=== PATIENT | male | born 1990 ===

== ENCOUNTER 2021-02-07 08:04 | Emergency (ER) | payer MEDICAID, OTHER ==
[~2021-02-07] VITALS: Ht 180.3 cm; Wt 148.8 kg
[2021-02-07 08:08] VITALS: BP 177/106
--- NOTE | 2021-02-07 09:41 | NUR ---
PT PRESENTS TO ED TREMULOUS. TREMORS STARTING LAST NIGHT IN RT HAND. PT DENIES PAIN AT THAT TIME. TREMORS CONTINUE, ALONG WITH SAENZ UPON WAKING THIS AM. PT HOB TO LEVEL OF COMFORT. PT DENIES BLANKET AT THIS TIME. SIDE RAIL UP, CALL LIGHT IN REACH.
[2021-02-07] MEDS ORDERED: LORazepam 1MG TABLET ONE (10:54)
[2021-02-07] MEDS ORDERED: LORazepam 1MG TABLET PO ONE (11:00)
[2021-02-07 11:03] LABS: BASOPHILS % (AUTO) 1 % (0-1); EOSINOPHILS % (AUTO) 0 % (1-7); LYMPHOCYTES % (AUTO) 17 % (22-44); MEAN CORPUSCULAR HEMOGLOBIN 31.9 pg (27.5-34.5); MEAN CORPUSCULAR HGB CONC 34.5 g/dL (33.2-36.2); MEAN PLATELET VOLUME 8.5 fL (7.4-10.4); MONOCYTES % (AUTO) 12 % (2-9); NEUTROPHILS % (AUTO) 70 % (42-75); PLATELET COUNT 152 x10^3/uL (130-400); RED BLOOD COUNT 4.06 x10^6/uL (4.38-5.82); RED CELL DISTRIBUTION WIDTH 17.9 % (9.4-14.8)
[2021-02-07 11:04] LABS: MD NO
[2021-02-07 11:12] LABS: ALBUMIN 3.2 g/dL (3.4-5.0); ANION GAP 2 mmol/L (5-15); CALCIUM 8.8 mg/dL (8.5-10.1); CHLORIDE 108 mmol/L (98-107); CREATININE 0.81 mg/dL (0.7-1.3)
[2021-02-07] MEDS ORDERED: KETOROLAC 30 MG/1 ML IM ONE (12:00)
[2021-02-07] MEDS ORDERED: KETOROLAC 30 MG/1 ML ONE (12:32)
== END 2021-02-07 15:23 | disposition home or self-care (01) ==
LOC: EDBD 08:04 → ED 12:44
DX: G44.011 Episodic cluster headache, intractable (principal); R60.0 Localized edema; I10 Essential (primary) hypertension; E11.9 Type 2 diabetes mellitus without complications; E78.00 Pure hypercholesterolemia, unspecified
CPT/HCPCS: 36415; 70450; 71045; 80048; 82040; 85025; 93005; 96372; 99285; J1885